=== PATIENT | male | born 1990 | race Caucasian/White ===

== ENCOUNTER 2016-04-16 06:58 | Emergency (ER) | payer BC ==
[~2016-04-16] VITALS: Ht 180.3 cm; Wt 112.6 kg
[~2016-04-16 06:58] MED LIST: LEVO112T2 PO; LEVO25TA PO
[2016-04-16 07:01] VITALS: TEMP 37.2; Ht 180.3 cm; Wt 112.6 kg
[2016-04-16] MEDS ORDERED: XYLOCAINE 1%/SOD BICARB 20 ML VIAL INFIL ONE (07:09)
--- NOTE | 2016-04-16 07:37 | EMERGENCY ROOM VISIT NOTE ---
History First contact with patient: 07:13 Chief Complaint: LACERATION/CUT (SUT/DERMABOND) Stated Complaint: CUT FINGER History of Present Illness This patient is a 26-year-old male who presents to the Emergency Department via private vehicle accompanied by father for evaluation of their left first digit/ hand laceration. Patient sustained the laceration while attempting to cut duct tape with a knife. They report a moderate amount of bleeding initially. They deny any numbness or tingling into the distal extremity. They report no decreased range of motion of the affected digit. They have tried nothing for the pain. Patient rates his current discomfort as a 8/10. Patient's Tetanus status is currently up-to-date. This is a nonwork-related incident. Review of Systems A complete 6-point Review of Systems was discussed with the patient, with pertinent positives and negatives listed in the History of Present Illness. All remaining Review of Systems questions can be considered negative unless otherwise specified. Past Medical/Surgical History Medical Problems: (1) Asthma Adenoidectomy, wisdom teeth extraction, perirectal abscess. Family History Unremarkable Social History Smoking Status: Current Every Day Smoker Alcohol Use: occasionally Drug Use: none Marital Status: single Housing Status: lives with family Occupation Status: employed Social History: Patient lives at home with parents. Current/Historical Medications Scheduled Levothyroxine Sodium (Synthroid), 25 MCG PO DAILY Levothyroxine Sodium (Synthroid), 112 MCG PO DAILY Allergies Coded Allergies: Cat Dander (Verified Allergy, Unknown, RESP SX, 04/16/16) Dog Dander (Verified Allergy, Unknown, RESP SX, 04/16/16) POLLEN (Verified Allergy, Unknown, RESP SX, 04/16/16) Uncoded Allergies: RABBIT (Allergy, Unknown, ANAPHYLAXIS, 07/08/13) Physical Exam Vital Signs Date Time Temp Pulse Resp B/P Pulse Ox O2 Delivery O2 Flow Rate FiO2 04/16/16 08:30 109 18 155/64 94 04/16/16 07:01 37.2 120 18 152/73 95 Room Air Physical Exam VITAL SIGNS - Vital signs and nursing notes were reviewed. GENERAL -26-year-old male appearing his stated age who is in no acute distress. Communicates well with provider and answers questions appropriately. SKIN - There is a 1 cm long laceration noted along the lateral ventral aspect of the left first digit near the base. The edges gape apart with traction. No foreign bodies appreciated. Upon further examination there are no deep structures including vessel, tendon, or bony structures appreciated. There is no active bleeding noted. MUSCULOSKELETAL - Laceration as described above. +5/5 strength appreciated of the affected digit. Full range of motion of the affected digit. NEUROLOGIC - Spinothalamic tract was found to be intact with ability to discriminate sharp versus dull sensation. No sensory defects of the dorsal column were appreciated utilizing light touch for evaluation. VASCULAR - Capillary refill was brisk. Medical Decision & Procedures Medical Decision Patient was seen and evaluated by myself as well as the PA student. Risks and benefits of performing primary wound closure versus no repair were discussed with the patient who verbalizes understanding. Verbal consent was obtained prior to performing the procedure. Under my direct supervision the wound was anesthetized, irrigated and closed by the PA student with the patient's verbal consent. 6 cc of 1% buffered lidocaine was used to anesthetize the wound. The wound was cleansed and prepped in the typical sterile fashion utilizing normal saline and Betadine. The wound was sterilely draped. Once proper anesthetization was established, the wound was further examined and demonstrated a linear laceration without deep involvement. The wound was copiously irrigated with normal saline and Betadine. The wound was closed using 5 simple, 5-0 nylon sutures with the wound edges being well approximated. Patient tolerated the procedure well. No complications were met. The wound was cleansed and dressed with a Bacitracin dressing. A metal splint was applied to the finger for comfort. Patient educated on worrisome symptoms for return visit to the Emergency Department. Patient discharged to home in good condition. Evaluation and treatment of this patient following differential diagnoses were entertained: Finger laceration/hand laceration Impression Primary Impression: Laceration of left hand Departure Information Dispostion Home / Self-Care Condition GOOD Referrals Faizan Regalado III, M.D. (PCP) Patient Instructions [employer], [employer] Additional Instructions Discharge Instructions: You have received 5 sutures on your Left hand. These sutures are NOT dissolvable and WILL need to be removed by a health care provider in 10 days. You can return to the Emergency Department or contact your Primary Care Provider to have the sutures removed. As we discussed please call the place where you would like to have these removed to ensure that they feel comfortable removing them. Please wear the splint for comfort until the sutures are removed. Proper wound care is essential for adequate wound healing and infection prevention. You can shower and clean the wound with soap and water. Do not scour over the wound, pat dry with a towel. Do not submerse the wound (i.e. bathe or dish wash) until the sutures have been removed. You can use an antibiotic ointment with a dressing over the wound for the next 3-4 days. After this time you may leave the wound dry and open to the air. If crust develops over the wound you can use a Q-tip to apply a 1:1 peroxide:water solution to clean the wound. Look for signs of infection of the wound including: increased pain, swelling, foul discharge, streaking, or increased temperature. If any of these are noticed you should return to the Emergency Department for further assessment and treatment. As with any laceration you may have received nerve damage to the surrounding tissues. This damage may or may not be permanent. You should keep the area covered with sunscreen for the first 6 months to 1 year when at risk for exposure to help minimize scarring. You can also use scar reducing creams or Vitamin E oil to help minimize scarring. For pain control, you can use the following [id number] medicines (if >12 yo): - Regular strength (325mg/tab) Tylenol (acetaminophen) 2 tabs every 4-6 hours as needed. Do not exceed 12 tablets in a 24 hour period. Avoid taking more than 4 grams (4000 mg) of Tylenol per day. This includes any other sources of acetaminophen you may take on a regular basis. - Regular strength (200 mg/tab) Advil (ibuprofen) 1-2 tabs every 4-6 hours as needed. Do not exceed a dose of 3200 mg per day. Return to the emergency department if your symptoms worsen despite treatment course outlined above. Please return to emergency department with any new/concerning symptoms.
[2016-04-16 08:30] VITALS: BP 155/64; PULSE 109; O2SAT 94
== END 2016-04-16 08:32 | disposition home or self-care (01) ==
LOC: C.EDB 07:00 → C.EDA 08:32
DX: S61.412A Laceration without foreign body of left hand, initial encounter (principal); W26.0XXA Contact with knife, initial encounter; J45.909 Unspecified asthma, uncomplicated; F17.210 Nicotine dependence, cigarettes, uncomplicated; Z79.899 Other long term (current) drug therapy

== ENCOUNTER → 2017-03-24 | Outpatient (CLI) | payer BC | END | disposition home or self-care (01) | LOC: C.RDSM 11:44 | PROVIDERS: ATTEND Family Medicine Sports Medicine | DX: M25.571 Pain in right ankle and joints of right foot (principal) ==